=== PATIENT | female | born 1960 | race African-American/Black ===

== ENCOUNTER 2019-07-16 14:12 | Inpatient (IN) | payer OTHER ==
[2019-07-16 16:40] VITALS: BMI 25.4
--- NOTE | 2019-07-16 19:13 | HP ---
CIWA Score - Admission Criteria [facility] Guidelines: Admission for Medically Managed Detox: Requires at least one of the followin. CIWA greater than 12 2. Seizures within the past 24 hours 3. Delirium tremens within the past 24 hours 4. Hallucinations within the past 24 hours 5. Acute intervention needed for co occurring medical disorder 6. Acute intervention needed for co occurring psychiatric disorder 7. Severe withdrawal that cannot be handled at a lower level of care (continued vomiting, continued diarrhea, abnormal vital signs) requiring intravenous medication and/or fluids 8. Admission ROS [facility] Chief Complaint: States did detox 4 days ago @ [facility] and here seeking rehab. Allergies/Adverse Reactions: Allergies Allergy/AdvReac Type Severity Reaction Status Date / Time acetaminophen [From Tylenol] Allergy Intermediate Hives Verified 07/16/19 16:35 coconut Allergy Mild Hives Verified 07/16/19 16:36 evaporated milk Allergy Mild Hives Uncoded 07/16/19 16:37 History of Present Illness: First admission for this 58 yo w/ hx alcohol, marijuana, and cocaine use disorder presents seeking rehab,after being detoxed at [facility] and discharged today. States was not given Libruim or benzo during detox. BEN: 0.0 UTox: + THC/BJORN Denies seizures, blackouts, overdoses. Alcohol use began at age 26. Alcohol 1/2 pint sukhwinder 2x/wk Cocaine use began at age 26. Smoked/sniffed. Blunt wraps q2 weeks Marijuana began at age 13. 2-3 blunts/week. Nicotine use began at age 26. Smokes 2-3 day. PMHx: HTN; Asthma (Last exacerbation years ago - but takes prior to using cocaine); CVA 10/12/18 (On Eliquis), MHHx: Manic Depression/Bipolar; Schizophrenic. Denies thoughts of harming self or others. Last saw MH Provider 1 month ago. Sometimes compliant w/ meds. On Depokote and Seroquel for anxiety and mood swings. Last took 4 days ago. SHx: Homeless. Unemployed. Denies legal issues. Patient Name: Jaye Browne Date: 1960 Address: [place] [address] Sex: Female Rx Written Rx Dispensed Drug Quantity Days Supply Prescriber Name 02/15/2019 02/16/2019 chlordiazepoxide 25 mg capsule 8 2 Jagdish Beaver Patient Name: Jaye Browne Date: 1960 Address: [address] [place] [address] Sex: Female Rx Written Rx Dispensed Drug Quantity Days Supply Prescriber Name 02/09/2019 02/10/2019 zolpidem tartrate 10 mg tablet 5 5 Silvestre Rai Iii, MD 11/13/2018 11/17/2018 zolpidem tartrate 10 mg tablet 15 15 Donny Galeana () Exam Limitations: No Limitations - Ebola screening Have you traveled outside of the country in the last 21 days: No Have you had contact with anyone from an Ebola affected area: No Have you been sick,other than usual withdrawal symptoms: No Do you have a fever: No - Review of Systems Constitutional: Weight Stable EENT: reports: Blurred Vision, Dental Problems (Missing teeth. Chews and swallows ok.) Respiratory: reports: No Symptoms reported Cardiac: reports: No Symptoms Reported GI: reports: No Symptoms Reported : reports: No Symptoms Reported Musculoskeletal: reports: No Symptoms Reported Integumentary: reports: Rash (on (R) started today and trip up to [place].) Endocrine: reports: No Symptoms Reported Hematology: reports: No Symptoms Reported Psychiatric: reports: Judgement Intact, Orientated x3, Anxious Patient History - PPD History Previous Implant?: Yes Documented Results: Negative w/o proof Implanted On Prior [facility] Admission?: No PPD to be Administered?: Yes - Smoking Cessation Smoking history: Current every day smoker Have you smoked in the past 12 months: Yes Aproximately how many cigarettes per day: 2 Hx Chewing Tobacco Use: No Initiated information on smoking cessation: Yes 'Breaking Loose' booklet given: 07/16/19 - Substance & Tx. History Hx Alcohol Use: Yes Hx Substance Use: Yes Substance Use Type: Alcohol, Cocaine, Marijuana Hx Substance Use Treatment: Yes (detox, rehab) - Substances abused Alcohol Substance route: Oral Frequency: 3-6 times per week Amount used: 2 nips of sukhwinder Age of first use: 26 Date of last use: 07/11/19 Cocaine Substance route: Smoking Frequency: 3-6 times per week Amount used: $50 Age of first use: 26 Date of last use: 01/01/20 Marijuana/Hashish Substance route: Smoking Frequency: 1-2 times per week Amount used: $10 Age of first use: 13 Date of last use: 07/11/19 Admission Physical Exam [facility] - Vital Signs Vital Signs: Vital Signs - 24 hr 07/16/19 16:37 Temperature 98.2 F Pulse Rate 79 Respiratory 16 Rate Blood Pressure 163/98 - Physical General Appearance: Yes: Nourished, Anxious HEENTM: Yes: EOMI, Hearing grossly Normal, Normocephalic, Normal Voice, VIN, Pharynx Normal Respiratory: Yes: Lungs Clear (Pulse = (& %), Normal Breath Sounds, No Respiratory Distress Neck: Yes: No masses,lesions,Nodules, Supple Breast: Yes: Breast Exam Deferred Cardiology: Yes: Regular Rate, S1, S2, Irregular Abdominal: Yes: Normal Bowel Sounds, Non Tender, Soft Genitourinary: Yes: Within Normal Limits Back: Yes: Normal Inspection Musculoskeletal: Yes: full range of Motion, Gait Steady Extremities: Yes: Normal Capillary Refill Neurological: Yes: senior android developer II-XII NML intact, Fully Oriented, Alert, Motor Strength 5/5 (BHG=. Don Foot push =.), Normal Mood/Affect Integumentary: Yes: Normal Color, Dry, Warm, Rash (Red, rasied papular lesions on upper arms (R) >(L)) Lymphatic: Yes: Within Normal Limits - Diagnostic (1) Alcohol use disorder, moderate, in early remission Current Visit: Yes Status: Acute (2) Cocaine use disorder, mild, in early remission Current Visit: Yes Status: Acute (3) Moderate cannabis dependence in early remission Current Visit: Yes Status: Acute (4) Nicotine abuse Current Visit: Yes Status: Chronic (5) HTN (hypertension) Current Visit: Yes Status: Chronic Qualifiers: Hypertension type: essential hypertension Qualified Code(s): I10 - Essential (primary) hypertension (6) History of CVA (cerebrovascular accident) without residual deficits Current Visit: Yes Status: Chronic Comment: On Eliquis (7) History of asthma Current Visit: Yes Status: Chronic Cleared for Admission [facility] - Detox or Rehab Claeared for Rehab Admission: Yes Breathalyzer - Breathalyzer Breathalyzer: 0 Urine Drug Screen - Test Device Lot number: [id number] Expiration date: 04/09/21 - Control Is test valid?: Yes - Results Drug screen NEGATIVE: No Urine drug screen results: THC-Marijuana, BJORN-Cocaine Inpatient Rehab Admission - Rehab Decision to Admit Inpatient rehab admission?: Yes - Initial Determination Are CD services needed?: Yes Free of communicable disease: Yes Not in need of hospitalization: Yes - Rehab Admission Criteria Previous failed treatment: Yes Poor recovery environment: Yes Comorbidities: Yes Lacks judgement: No Patient is meeting Inpatient Rehab admission criteria:: Yes
[2019-07-16] MEDS ORDERED: MAGNESIUM CITRATE 300 ML BOTTLE PO PRN (19:33)
[2019-07-16] MEDS ORDERED: MENTHOL/PHENOL 1 EACH UD MM PRN (19:33)
[2019-07-16] MEDS ORDERED: hydrOXYzine PAMOATE 25 MG CAPSULE (FP) PO PRN (19:33)
[2019-07-16] MEDS ORDERED: guaiFENesin 200 MG/10 ML 10 ML UNIT-DOSE CUPS PO PRN (19:33)
[2019-07-16] MEDS ORDERED: MAG HYDROX/AL HYDROX/SIMETH 30 ML UNIT-DOSE CUP PO PRN (19:33)
[2019-07-16] MEDS ORDERED: MAGNESIUM HYDROX 2400MG/30ML ORAL SUSPENSION 30 ML CUP PO PRN (19:33)
[2019-07-16] MEDS ORDERED: NICOTINE POLACRILEX 2 MG GUM BC PRN (19:33)
[2019-07-16] MEDS ORDERED: P-EPHED 60MG/TRIPROLIDI 2.5MG TABLET PO PRN (19:33)
[2019-07-16] MEDS ORDERED: LOPERAMIDE HCL 2 MG CAPSULE PO PRN (19:33)
[2019-07-16] MEDS ORDERED: ALBUTEROL SO4 8 GM HFA INHALER IH PRN (19:40)
[2019-07-16] MEDS ORDERED: TUBERCULIN PPD 5 TU/0.1ML VIAL ID ONE ×2 (21:56→23:15)
[2019-07-16] MEDS: APIXABAN 5 MG TABLET PO SCH (21:58)
[2019-07-16] MEDS ORDERED: THIAMINE HCL 100 MG TABLET (FP) PO SCH (22:00)
[2019-07-16] MEDS ORDERED: MELATONIN 5 MG TABLETS PO PRN (22:00)
[2019-07-16] MEDS ORDERED: ROSUVASTATIN CA 20 MG TABLET (FP) PO SCH (22:00)
[2019-07-17 08:00] VITALS: TEMP 97.8
--- NOTE | 2019-07-17 08:52 | CONSULT ---
[facility] Psychiatric Consult - Data Date of interview: 07/17/19 Admission source: [facility] Identifying data: Ms Browne is a 58 years old Black female, mother of 4 childen, unemployed receiving SSI/SSD, homeless referred from [facility] on 07/16/19 for inpatient rehabilitation for alcohol, cocaine and cannabis Substance Abuse History: Reports history of alcohol, cocaine and marijuana use. Refer to addiction counselor's summary for further information Medical History: Significant for bronchial asthma, hypertension, dyslipidemia and history of cerebro-vascular accident in October 2018. Smokes 2-3 cigaretes daily Psychiatric History: Reports that her first psychiatric contact was at age 26 when she was admitted to [facility] for depression and suicidal ideations with intent to overdose on pills. She was diagnosed with Schizoaffective Disorder and prescribed Depakote and Seroquel. Reports multiple subsequent psychiatric hospitalizations at various institutions including [facility], [place] [id number] and another unnamed facility [facility]. Reports receiving outpatient psychiatric treatment at [facility] with Rafaela Chaudhry NP and she is prescribed Depakote 500 mg/bid and Seroquel 300 mg/hs. [facility] [phone]. According to pharmacist, scripts for Depakote 500 mg/bid and Seroquel 50 mg/hs were filled on 06/28/19. Denies previous suicidal attempt. At present, denies experiencing psychotic, manic or depressive symptoms, S/H ideations. However, reports feeling anxious and sleeping poorly Physical/Sexual Abuse/Trauma History: Denies history of abuse as a child or DV relationship as an adult Mental Status Exam - Mental Status Exam Alert and Oriented to: Time, Place, Person Cognitive Function: Fair Patient Appearance: Disheveled Mood: Anxious Affect: Appropriate Patient Behavior: Cooperative Speech Pattern: Clear Voice Loudness: Normal Thought Process: Intact, Goal Oriented Hallucinations: Denies Suicidal Ideation: Denies Homicidal Ideation: Denies Insight/Judgement: Fair Sleep: Poorly Appetite: Good Muscle strength/Tone: Normal Gait/Station: Normal Psychiatric Findings - Problem List ([place] 1, 2,3) (1) Schizoaffective disorder Current Visit: Yes Status: Chronic (2) Substance-induced anxiety disorder Current Visit: Yes Status: Acute (3) Substance-induced sleep disorder Current Visit: Yes Status: Acute (4) Alcohol dependence Current Visit: Yes Status: Acute (5) Cocaine dependence Current Visit: Yes Status: Acute (6) Cannabis abuse Current Visit: Yes Status: Acute (7) Nicotine dependence Current Visit: Yes Status: Chronic (8) HTN (hypertension) Current Visit: Yes Status: Chronic Qualifiers: Hypertension type: essential hypertension Qualified Code(s): I10 - Essential (primary) hypertension (9) Bronchial asthma Current Visit: Yes Status: Chronic (10) Dyslipidemia Current Visit: Yes Status: Chronic (11) CVA (cerebral vascular accident) Current Visit: Yes Status: Resolved - Initial Treatment Plan Initial Treatment Plan: 1) Continue Depakote 500 mg po BID and Seroquel 300 mg po HS. 2) Continue inpatient rehabilitation
[2019-07-17 09:25] VITALS: BP 145/90; PULSE 76
--- NOTE | 2019-07-17 09:26 | EKG ---
Test Reason : Blood Pressure : / mmHG Vent. Rate : 084 BPM Atrial Rate : 416 BPM P-R Int : 000 ms QRS Dur : 088 ms QT Int : 394 ms P-R-T Axes : 000 000 001 degrees QTc Int : 465 ms ATRIAL FIBRILLATION SEPTAL INFARCT , AGE UNDETERMINED ABNORMAL ECG WHEN COMPARED WITH ECG OF 16-JUL-2019 21:13, PREVIOUS ECG HAS UNDETERMINED RHYTHM, NEEDS REVIEW Confirmed by Glynn Piedra MD ([id number]) on 07/17/2019 9:26:18 AM Referred By: Confirmed By:Glynn Piedra MD
[2019-07-17] MEDS ORDERED: PRENATAL VITAMINS W/ FOLIC ACID TABLET (FP) PO SCH (10:00)
[2019-07-17] MEDS ORDERED: amLODIPine BESYLATE 10 MG TABLET (FP) PO SCH (10:00)
[2019-07-17] MEDS ORDERED: DIVALPROEX SODIUM 500 MG TABLET E.C. PO SCH (10:00)
[2019-07-17] MEDS: APIXABAN 5 MG TABLET PO SCH (10:09)
[2019-07-17 11:54] LABS: HEMOGLOBIN 13.6 GM/dL (10.7-15.3); MCH 28.7 pg (25.7-33.7); MCHC 32.3 g/dl (32.0-36.0); MEAN CELL VOLUME 88.9 fl (80-96); MEAN PLT VOLUME 8.6 fl (7.5-11.1); PLATELET COUNT 358 K/MM3 (134-434); RBC 4.73 M/mm3 (3.60-5.2); RDW 16.1 % (11.6-15.6)
[2019-07-17 12:04] LABS: BILIRUBIN,TOTAL 0.2 mg/dL (0.2-1); BLOOD UREA NITROGEN 22.8 mg/dL (7-18); CALCIUM 8.7 mg/dL (8.5-10.1); POTASSIUM 3.7 mmol/L (3.5-5.1); TOT PROT 7.2 g/dl (6.4-8.2)
--- NOTE | 2019-07-17 15:41 | DS ---
[facility] Rehab Discharge Summary - [facility] Rehab Discharge Summary Admission Date: 07/16/19 Discharge Date: 07/17/19 - History Present History: Alcohol dependence, Cannabis dependence, Cocaine dependence Additional Comments: Pt is a 58 y/o female with a hx of KIMBERLY admitted yesterday from [facility] to rehab and insisting to leave treatment today for personal reasons. All efforts by this administrative underwriter and the nurse Sridevi Chauhan was unsuccessful. Pt also declined to speak to this provider reiterating she is leaving and does not want to speak to anyone. Pertinent Past History: Adsthma HTN CVA Dyslipidemia Schizoaffective disorder - Discharge Physical Exam Vital Signs: Vital Signs Temperature 97.8 F 07/17/19 07:59 Pulse Rate 76 07/17/19 09:24 Respiratory Rate 18 07/17/19 07:59 Blood Pressure 145/90 07/17/19 09:24 O2 Sat by Pulse Oximetry (%) Pt refused P/E Pertinent Admission Physical Exam Findings: Laboratory Tests 07/17/19 07/17/19 07/17/19 08:04 08:04 08:04 WBC 5.0 RBC 4.73 Hgb 13.6 Hct 42.0 MCV 88.9 MCH 28.7 MCHC 32.3 RDW 16.1 H Plt Count 358 MPV 8.6 Sodium Potassium Chloride Carbon Dioxide Anion Gap BUN Creatinine Est GFR (CKD-EPI)AfAm Est GFR (CKD-EPI)NonAf Random Glucose Calcium Total Bilirubin AST ALT Alkaline Phosphatase Total Protein Albumin Valproic Acid 7.5 L RPR Titer HIV 1&2 Antibody Screen Negative HIV P24 Antigen Negative 07/17/19 07/17/19 08:04 08:04 WBC RBC Hgb Hct MCV MCH MCHC RDW Plt Count MPV Sodium 140 Potassium 3.7 Chloride 106 Carbon Dioxide 27 Anion Gap 6 L BUN 22.8 H Creatinine 1.0 Est GFR (CKD-EPI)AfAm 71.41 Est GFR (CKD-EPI)NonAf 61.62 Random Glucose 123 H Calcium 8.7 Total Bilirubin 0.2 AST 26 ALT 23 Alkaline Phosphatase 90 Total Protein 7.2 Albumin 3.0 L Valproic Acid RPR Titer Nonreactive HIV 1&2 Antibody Screen HIV P24 Antigen - Treatment Discharge Condition: Discharge condition good Hospital Course: Pt admitted yesterday and declined treatment today. - Medication Discharge Medications: Ambulatory Orders Albuterol Sulfate Inhaler - [Ventolin Hfa Inhaler -] 2 inh PO Q6H 07/16/19 Amlodipine Besylate 10 mg PO DAILY 07/16/19 Apixaban [Eliquis] 5 mg PO BID 07/16/19 Divalproex [Depakote -] 500 mg PO BID 07/16/19 Folic Acid 1 mg PO DAILY 07/16/19 Quetiapine Fumarate [Seroquel -] 50 mg PO HS 07/16/19 Rosuvastatin Calcium [Crestor] 20 mg PO DAILY 07/16/19 - Medication-Assisted Treatment (MAT) Medication-Assisted Treatment (MAT): No - Discharge Instructions Diet, activity, other medical instructions: Diet:OLYA Activity: oob ad kunal Other medical instructions:follow up with your primary care provider for medical management. - Diagnosis (1) Alcohol dependence Status: Chronic Qualifiers: Substance use status: uncomplicated Qualified Code(s): F10.20 - Alcohol dependence, uncomplicated (2) Cannabis abuse Status: Chronic (3) Cocaine dependence Status: Chronic Qualifiers: Substance use status: uncomplicated Qualified Code(s): F14.20 - Cocaine dependence, uncomplicated (4) Dyslipidemia Status: Chronic (5) HTN (hypertension) Status: Chronic Qualifiers: Hypertension type: essential hypertension Qualified Code(s): I10 - Essential (primary) hypertension (6) History of CVA (cerebrovascular accident) without residual deficits Status: Chronic (7) History of asthma Status: Chronic (8) Nicotine dependence Status: Chronic Qualifiers: Nicotine product type: cigarettes Substance use status: uncomplicated Qualified Code(s): F17.210 - Nicotine dependence, cigarettes, uncomplicated - Follow-up Referral Minutes to complete discharge: 10 - AMA Did Patient Leave Against Medical Advice: Yes
--- NOTE | 2019-07-17 15:41 | PN ---
[facility] Progress Note Note: Pt is a 58 y/o female admitted to rehab on 07/16/19. pt declined to see this provider for initial rehab contact stating "I don't need to see you. I'm going home and I'm a grown woman and can leave if I want to leave". Pt became irritable when provider tried to encourage her to stay in treatment. Vital Signs - 24 hr 07/16/19 07/16/19 07/16/19 16:37 20:50 23:00 Temperature 98.2 F 97.7 F Pulse Rate 79 88 56 L Respiratory 16 18 Rate Blood Pressure 163/98 141/94 129/92 07/17/19 07/17/19 07/17/19 00:30 03:30 07:08 Temperature 97.7 F Pulse Rate 71 Respiratory 16 16 18 Rate Blood Pressure 123/78 07/17/19 07/17/19 07:59 09:24 Temperature 97.8 F Pulse Rate 70 76 Respiratory 18 Rate Blood Pressure 154/102 H 145/90 Laboratory Tests 07/17/19 07/17/19 07/17/19 08:04 08:04 08:04 WBC 5.0 RBC 4.73 Hgb 13.6 Hct 42.0 MCV 88.9 MCH 28.7 MCHC 32.3 RDW 16.1 H Plt Count 358 MPV 8.6 Sodium Potassium Chloride Carbon Dioxide Anion Gap BUN Creatinine Est GFR (CKD-EPI)AfAm Est GFR (CKD-EPI)NonAf Random Glucose Calcium Total Bilirubin AST ALT Alkaline Phosphatase Total Protein Albumin Valproic Acid 7.5 L RPR Titer HIV 1&2 Antibody Screen Negative HIV P24 Antigen Negative 07/17/19 07/17/19 08:04 08:04 WBC RBC Hgb Hct MCV MCH MCHC RDW Plt Count MPV Sodium 140 Potassium 3.7 Chloride 106 Carbon Dioxide 27 Anion Gap 6 L BUN 22.8 H Creatinine 1.0 Est GFR (CKD-EPI)AfAm 71.41 Est GFR (CKD-EPI)NonAf 61.62 Random Glucose 123 H Calcium 8.7 Total Bilirubin 0.2 AST 26 ALT 23 Alkaline Phosphatase 90 Total Protein 7.2 Albumin 3.0 L Valproic Acid RPR Titer Nonreactive HIV 1&2 Antibody Screen HIV P24 Antigen Alert o x 3, no s/h/i expressed nad oob ambulating with steady gait. Pt will referred to speak to her counselor for Cd aftercare referral if she insists on leaving.
[2019-07-17] MEDS ORDERED: QUEtiapine FUMARATE 50 MG TABLET PO SCH (22:00)
[2019-07-17] MEDS ORDERED: QUEtiapine FUMARATE 300 MG TABLET PO SCH (22:00)
== END 2019-07-17 15:32 | disposition left against medical advice (07) | DRG 770 ==
LOC: YASAS 14:12 → Y3E 20:08
PROVIDERS: ADMIT Neuromusculoskeletal Medicine & OMM; ATTEND Neuromusculoskeletal Medicine & OMM
PROC: HZ2ZZZZ Detoxification Services for Substance Abuse Treatment (ICD-10-PCS; principal; 2019-07-16)
DX: F10.20 Alcohol dependence, uncomplicated (principal); F14.20 Cocaine dependence, uncomplicated; F12.10 Cannabis abuse, uncomplicated; F17.210 Nicotine dependence, cigarettes, uncomplicated; F25.9 Schizoaffective disorder, unspecified; F19.280 Other psychoactive substance dependence with psychoactive substance-induced anxiety disorder; F19.282 Other psychoactive substance dependence with psychoactive substance-induced sleep disorder; I10 Essential (primary) hypertension; E78.5 Hyperlipidemia, unspecified; J45.909 Unspecified asthma, uncomplicated; I49.9 Cardiac arrhythmia, unspecified; Z79.01 Long term (current) use of anticoagulants; Z86.73 Personal history of transient ischemic attack (TIA), and cerebral infarction without residual deficits; Z88.6 Allergy status to analgesic agent; Z91.018 Allergy to other foods; Z91.011 Allergy to milk products; Z56.0 Unemployment, unspecified; Z59.0 Homelessness
CPT/HCPCS: 36415; 80053; 80164; 85027; 86593; 87389; 93005; 93010